=== PATIENT | female | born 1985 | race Two or more races ===

== ENCOUNTER → 2019-01-02 | Outpatient (REF) | payer BC | LOC: M LAB LCGH 11:49 | DX: Z12.4 Encounter for screening for malignant neoplasm of cervix (principal) ==

== ENCOUNTER → 2024-11-21 | Outpatient (REF) | payer OTHER | LOC: M SFHCDERM 13:13 | PROVIDERS: ATTEND Physician Assistant | DX: D22.5 Melanocytic nevi of trunk (principal) ==